=== PATIENT | male | born 1970 | race Caucasian/White ===

== ENCOUNTER 2018-08-04 12:07 | Emergency (ER) | payer BC, SELFPAY | END 2018-08-04 13:30 | disposition home or self-care (01) | LOC: ERS 12:07 | DX: J06.9 Acute upper respiratory infection, unspecified (principal); Z87.891 Personal history of nicotine dependence | CPT/HCPCS: 87804; 99283 ==

== ENCOUNTER 2021-11-25 14:54 | Outpatient (CLI) | payer BC | END 2021-11-25 14:55 | disposition home or self-care (01) | LOC: BICRAD 14:54 | PROVIDERS: ATTEND Family Medicine | DX: M25.562 Pain in left knee (principal) ==